=== PATIENT | male | born 2000 | race Caucasian/White ===

== ENCOUNTER 2018-06-23 22:07 | Emergency (ER) | payer OTHER ==
--- NOTE | 2018-06-23 22:52 | RAD ---
THREE VIEWS OF THE LEFT HAND: 06/23/18 COMPARISON: None. HISTORY: Puncture wound to the left hand from a fencing accident 30 minutes ago. FINDINGS: Three views of the left hand shows no evidence of acute fracture or dislocation. No degenerative quezada ges are seen. No radiopaque foreign body is present. IMPRESSION: No evidence of acute osseous abnormality. POS: [facility]
[2018-06-23] MEDS ORDERED: Lidocaine 1% PF 5 ML VIAL ONE (23:02)
[2018-06-23] MEDS ORDERED: Bacitracin Zinc 1 Packet ONE (23:46)
== END 2018-06-23 23:49 | disposition home or self-care (01) ==
LOC: EDBD 22:07 → ERS 22:07
DX: S61.412A Laceration without foreign body of left hand, initial encounter (principal); F41.9 Anxiety disorder, unspecified; W26.8XXA Contact with other sharp object(s), not elsewhere classified, initial encounter
CPT/HCPCS: 12001; J2001